=== PATIENT | female | born 1990 | race Caucasian/White ===

== ENCOUNTER → 2017-05-05 | Day surgery (SDC) | payer OTHER ==
[~2017-05-05] VITALS: Ht 167.6 cm; Wt 76.3 kg
[~2017-05-05] MED LIST: FLOMAX0.4 MG PO; NORCO 5-325 TA1 EACH PO; TORADOL10 MG PO
--- NOTE | ~2017-05-05 | OR ---
PATIENT'S NAME: DURAN VELASCO [facility] AGE: 26 Y [address] ROOM: [place] [address] LOCATION: [facility] ADMIT DATE: 05/05/2017 OR/Procedure Report DISCHARGE DATE: FAMILY PHYSICIAN: Glynn Barba MD ATTENDING PHYSICIAN: Thomas Garcia SURGEON: Thomas aGrcia MD [employer]: DATE OF PROCEDURE: 05/05/2017 PREOPERATIVE DIAGNOSES: 1. Obstructing left ureteral calculus. 2. Bilateral nephrolithiasis. POSTOPERATIVE DIAGNOSES: 1. Obstructing left ureteral calculus. 2. Bilateral nephrolithiasis. PROCEDURE: 1. Cystoscopy with left ureteroscopy, laser lithotripsy, and stone basket extractions. 2. Left ureteral stent placement. ANESTHESIA: Sedation. INDICATION: This is a 26-year-old lady with bilateral stone disease as noted above. This is her first symptomatic episode. She had a CT scan on 05/01/2017 demonstrating a 7 mm left proximal calculus with obstruction. She has had ongoing symptoms. She presents for intervention. I counseled her that if her stone is still up high, we will likely manipulate in the renal pelvis, place a stent, and proceed with ESWL. If it has moved down, since her scan was a few days ago, we will approach it ureteroscopically. DESCRIPTION OF PROCEDURE: Having obtained her informed consent, the patient was taken to the cystoscopy suite. She was prepped and draped sterilely and in lithotomy position. IV sedation was administered. Before we started anything, did a quick fluoro. It appears the stone has moved down to the distal third. Cystoscopy was then undertaken. The urethra was unremarkable. The bladder itself demonstrates no tumors, stones, or foreign bodies. Bladder examination was confirmed with 70-degree lens. Under fluoroscopy, I passed a guidewire up the left. Indeed, that is our 5 x 7 mm stone. I manipulated the wire beyond it. PATIENT'S NAME: DURAN VELASCO [facility] AGE: 26 Y [address] ROOM: [place] [id number] LOCATION: [facility] ADMIT DATE: 05/05/2017 OR/Procedure Report DISCHARGE DATE: FAMILY PHYSICIAN: Glynn Barba MD ATTENDING PHYSICIAN: Garcia,Thomas F I then used a balloon dilator and dilated the orifice and intramural tunnel. I then passed the semi-rigid ureteroscope to the stone. Using a 600 micron laser fiber set at 600 mJ and 6 hertz, the stone was completely fragmented. I then passed a nitinol basket. I extracted multiple fragments. We have her ureter completely clean. I can now walk the ureter easily to the proximal third. With the dilation, laser lithotripsy and manipulation and extractions, I opted to stent her. My safety wire was back loaded into the cystoscope. Over that wire, I passed a 4.8 Multi-Link stent using cystoscopic and fluoroscopic visualization. We have a nice level of placement. The bladder was drained and the case was concluded. The dangler string is left in place on the stent. It is taped to the skin. The patient tolerated the procedure well. BLOOD LOSS: Negligible. SPECIMEN: Stone fragments were sent for analysis. POSTOPERATIVE CONDITION: The patient returned to the outpatient recovery in awake and stable condition. THOMAS GARCIA MD [facility]/modl /[id number] CC: Glynn Barba MD d: 05/06/17 0205 t: 05/15/17 0915, OPERATIVE SUMMARY
== END | disposition disaster alternative care site (69) ==
LOC: GPOC 05-04 15:00
PROC: 0TF78ZZ Fragmentation in Left Ureter, Via Natural or Artificial Opening Endoscopic (ICD-10-PCS; principal; 2017-05-05)
PROC: 0T778DZ Dilation of Left Ureter with Intraluminal Device, Via Natural or Artificial Opening Endoscopic (ICD-10-PCS; 2017-05-05)
DX: N13.2 Hydronephrosis with renal and ureteral calculous obstruction (principal); Z98.890 Other specified postprocedural states
CPT/HCPCS: C1725; C1769; C2617; J1956; J2001; J7120